=== PATIENT | female | born 1940 | race Caucasian/White ===

== ENCOUNTER 2017-04-12 05:20 | Emergency (ER) | payer BC, MEDICARE ==
--- NOTE | 2017-04-12 05:31 | C.PDOC ---
History Of Present Illness Patient presents to the ER after waking up at 04:00 screaming and crying because of a headache. Denies fever, chills, nausea or vomiting. Time Seen by Provider: 04/12/17 05:29 Chief Complaint (Nursing): Headache History Per: Patient History/Exam Limitations: no limitations Onset/Duration Of Symptoms: Hrs (Since 04:00) Current Symptoms Are (Timing): Still Present Severity: Mild Pain Scale Rating Of: 4 Preceeding Symptoms: None Associated Symptoms: denies: Nausea, Vomiting, Other (Fever, chills) Recent travel outside of the [place]: No Past Medical History Reviewed: Historical Data, Nursing Documentation, Vital Signs Vital Signs: Last Vital Signs Temp 98.9 F 04/12/17 05:26 Pulse 98 H 04/12/17 05:26 Resp 20 04/12/17 05:26 BP 159/74 H 04/12/17 05:26 Pulse Ox 96 04/12/17 06:39 - Medical History PMH: Diverticulitis Surgical History: Cholecystectomy Family History: States: No Known Family Hx - Social History Hx Tobacco Use: No Hx Alcohol Use: No Hx Substance Use: No - Immunization History Hx Tetanus Toxoid Vaccination: No Hx Influenza Vaccination: No Hx Pneumococcal Vaccination: No Review Of Systems Constitutional: Negative for: Fever, Chills Gastrointestinal: Negative for: Nausea, Vomiting Neurological: Positive for: Headache Physical Exam - Physical Exam Appears: Non-toxic Skin: Warm, Dry Oral Mucosa: Moist Chest: Symmetrical, No Tenderness Cardiovascular: Rhythm Regular, No Murmur Respiratory: No Rales, No Rhonchi, No Wheezing Gastrointestinal/Abdominal: Soft, No Tenderness Neurological/Psych: Oriented x3, Other (No focal deficits) ED Course And Treatment - Laboratory Results Result Diagrams: 04/12/17 05:47 04/12/17 05:47 ECG: Interpreted By Me, Viewed By Me O2 Sat by Pulse Oximetry: 96 Pulse Ox Interpretation: Normal - Radiology CXR: Interpreted by Me, Viewed By Me CXR Interpretation: No: Infiltrates, Fracture, Pnemothorax Progress Note: Blood work, CXR, urinalysis, EKG and head CT w/o contrast ordered. Reevaluation Time: 06:41 Reassessment Condition: Improved NIHSS Stroke Scale - Date/Time Evaluation Performed Date Performed: 04/12/17 Time Performed: 05:23 When Was NIHSS Performed: Baseline - How Severe is the Stoke Level of Consciousness: 0=Alert LOC to Questions: 0=Both comments correct LOC to commands: 0=Obeys both correctly Best Gaze: 0=Normal Visual: 0=No visual loss Facial: 0=Normal Motor Arm - Left: 0=No drift Motor Arm - Right: 0=No drift Motor Leg - Left: 0=No drift Motor Leg - Right: 0=No drift Limb Ataxia: 0=Absent Sensory: 0=Normal Best Language: 0=No aphasia Dysarthia: 0=Normal articulation Extinction & Inattention (Neglect): 0=Normal, no object Score: 0 Severity Of Stroke: 0= No Stroke Disposition Counseled Patient/Family Regarding: Studies Performed, Diagnosis, Need For Followup, Rx Given - Disposition Referrals: Otoniel Boyd MD [Staff Provider] - Disposition: HOME/ ROUTINE Disposition Time: 05:30 Condition: FAIR Prescriptions: Ibuprofen [Motrin] 1 tab PO TID PRN #15 tab PRN Reason: Pain Instructions: Acute Headache (DC), Night Terrors (ED) Print Language: PORTUGUESE - Clinical Impression Clinical Impression: Headache, Night terror - Scribe Statement The provider has reviewed the documentation as recorded by the Scribe Xu Quiñones All medical record entries made by the Scribe were at my direction and personally dictated by me. I have reviewed the chart and agree that the record accurately reflects my personal performance of the history, physical exam, medical decision making, and the department course for this patient. I have also personally directed, reviewed, and agree with the discharge instructions and disposition.
[2017-04-12 05:50] LABS: BASO # 0.1 K/uL (0.0-0.2); BASO % 0.5 % (0.0-2.0); EOS # 1.1 K/uL (0.0-0.7); EOS % 9.1 % (0.0-4.0); HEMATOCRIT 40.1 % (34.0-47.0); LYMPH # 1.7 K/uL (1.0-4.3); MEAN CELL VOLUME 93.1 fL (81.0-99.0); MEAN CORPUSCULAR HEMOGLOBIN 30.9 pg (27.0-31.0); MEAN CORPUSCULAR HGB CONC 33.2 g/dL (33.0-37.0); MEAN PLATELET VOLUME 8.6 fL (7.2-11.7); MONO # 0.7 K/uL (0.0-0.8); MONO % 5.7 % (0.0-10.0); WHITE BLOOD COUNT 11.7 K/uL (4.8-10.8)
[2017-04-12 06:02] LABS: CHLORIDE 103 mmol/L (98-107); SODIUM 139 mmol/L (132-148)
[2017-04-12 06:04] LABS: ALB/GLOB RATIO 1.3 (1.0-2.1); ALKALINE PHOSPHATASE 98 U/L (38-126); ALT/SGPT 31 U/L (9-52); AST/SGOT 33 U/L (14-36); BLOOD UREA NITROGEN 20 mg/dL (7-17); CARBON DIOXIDE 25 mmol/L (22-30); GFR AFRICAN-AMERICAN > 60; GLUCOSE,RANDOM 103 mg/dL (65-105); TOTAL PROTEIN 7.7 g/dL (6.3-8.3)
[2017-04-12 06:05] LABS: CALCIUM 8.5 mg/dl (8.6-10.4); MAGNESIUM 2.2 mg/dL (1.6-2.3); PHOSPHOROUS 3.1 mg/dL (2.5-4.5)
[2017-04-12 06:56] VITALS: BP 154/70; PULSE 92; RESP 16; TEMP 98.2; O2SAT 100
[2017-04-12 07:02] LABS: VENOUS BLOOD GAS BASE EXCESS -10.6 mmol/L (0.0-2.0); VENOUS BLOOD GAS PCO2 57 mmHg (40-60); VENOUS BLOOD PH 7.13 (7.32-7.43)
--- NOTE | 2017-04-12 11:06 | CT ---
PROCEDURE: CT HEAD WITHOUT CONTRAST. HISTORY: R/O Bleed COMPARISON: Comparison CT scan brain 06/17/2016 TECHNIQUE: Axial computed tomography images were obtained through the head/brain without intravenous contrast. Radiation dose: Total exam DLP = 866.81 mGy-cm. This CT exam was performed using one or more of the following dose reduction techniques: Automated exposure control, adjustment of the mA and/or kV according to patient size, and/or use of iterative reconstruction technique. FINDINGS: HEMORRHAGE: No intracranial hemorrhage. BRAIN: Mild moderate chronic periventricular white matter ischemic changes seen extending peripherally into the subcortical white matter both cerebral hemispheres. . Moderate central volume loss VENTRICLES: Ventricles are [id number] enlarged due to central volume loss. Ventricles do not appear hydro cephalic. CALVARIUM: No acute calvarial fractures. Scattered lucencies throughout the the inner table of the calvarium probably represent some combination of vascular grooves and venous lakes and do appear stable since prior exam. No cortical destructive changes. PARANASAL SINUSES: Opacification right aspect of the frontal sinus mild mucosal thickening seen within the ethmoid air complex MASTOID AIR CELLS: Unremarkable as visualized. No inflammatory changes. OTHER FINDINGS: None. IMPRESSION: Mild moderate chronic white matter ischemic changes as above. Dated. Moderate central volume loss.
--- NOTE | 2017-04-12 19:39 | RAD ---
PROCEDURE: CHEST RADIOGRAPH, 1 VIEW HISTORY: SOB COMPARISON: Comparison chest 11/10/2012. Comparison also made with prior CT scan abdomen pelvis 07/07/2012 which imaged both lung bases. FINDINGS: LUNGS: Eventration and/or Morgagni hernia left hemidiaphragm on less well seen on this study compared the prior CT scan abdomen pelvis which image both lung bases PLEURA: No pneumothorax or pleural fluid seen. CARDIOVASCULAR: N heart size is upper limits of normal/ borderline enlarged. L. OSSEOUS STRUCTURES: No significant abnormalities. VISUALIZED UPPER ABDOMEN: Normal. OTHER FINDINGS: None. IMPRESSION: Suspect minor bibasilar atelectasis. Eventration and/or hernia left hemidiaphragm
== END 2017-04-12 07:02 | disposition home or self-care (01) ==
LOC: C.ER 05:20
DX: R51 Headache (principal); F51.4 Sleep terrors [night terrors]
CPT/HCPCS: 70450; 71010; 80053; 82803; 82948; 83735; 84100; 84484; 85025; 85610; 85730; 96374; 99284; J1885

== ENCOUNTER 2017-10-26 12:21 | Emergency (ER) | payer MEDICARE ==
[2017-10-26 12:35] VITALS: RESP 18
[2017-10-26 13:17] LABS: BASO # 0.1 K/uL (0.0-0.2); BASO % 0.9 % (0.0-2.0); EOS # 0.5 K/uL (0.0-0.7); EOS % 6.8 % (0.0-4.0); HEMATOCRIT 38.9 % (34.0-47.0); LYMPH # 1.9 K/uL (1.0-4.3); LYMPH % 28.7 % (20.0-40.0); MEAN CELL VOLUME 93.7 fL (81.0-99.0); MEAN CORPUSCULAR HEMOGLOBIN 31.5 pg (27.0-31.0); MEAN CORPUSCULAR HGB CONC 33.6 g/dL (33.0-37.0); MEAN PLATELET VOLUME 8.1 fL (7.2-11.7); MONO # 0.6 K/uL (0.0-0.8); MONO % 8.6 % (0.0-10.0); RED CELL DISTRIBUTION WIDTH 14.3 % (11.5-14.5); WHITE BLOOD COUNT 6.7 K/uL (4.8-10.8)
[2017-10-26 13:33] LABS: ALB/GLOB RATIO 1.4 (1.0-2.1); ALKALINE PHOSPHATASE 73 U/L (38-126); ALT/SGPT 42 U/L (9-52); AST/SGOT 34 U/L (14-36); BILIRUBIN,TOTAL 0.8 mg/dL (0.2-1.3); BLOOD UREA NITROGEN 16 mg/dL (7-17); CALCIUM 8.1 mg/dl (8.6-10.4); CARBON DIOXIDE 24 mmol/L (22-30); CHLORIDE 105 mmol/L (98-107); GFR AFRICAN-AMERICAN > 60; GLUCOSE,RANDOM 94 mg/dL (65-105); POTASSIUM 4.3 mmol/L (3.6-5.2); SODIUM 137 mmol/L (132-148)
[2017-10-26] MEDS ORDERED: Alum-Mag Hydrox-Simethicone Susp (30 mL) PO STA (13:51)
--- NOTE | 2017-10-26 13:58 | C.PDOC ---
History Of Present Illness 77 year old female presents to the ED complaining of epigastric, nonradiating abdominal pain associated with NBNB vomiting and NB diarrhea x 2 days. Also complains of diffuse headache. She is accompanied by two sons who admit that she has had similar symptoms for a long time and has been seen in the ED previously. Denies fever, chills, dyspnea, chest pain, dysuria, numbness, or weakness. PMD: Dr. Otoniel Boyd MD Time Seen by Provider: 10/26/17 13:10 Chief Complaint (Nursing): Dizziness/Lightheaded Past Medical History Vital Signs: Last Vital Signs Temp 98.6 F 10/26/17 12:42 Pulse 72 10/26/17 12:34 Resp 18 10/26/17 12:34 BP 109/67 10/26/17 12:34 Pulse Ox 96 10/26/17 16:44 - Medical History PMH: Diverticulitis Surgical History: Cholecystectomy Family History: States: No Known Family Hx - Social History Hx Tobacco Use: No Hx Alcohol Use: No Hx Substance Use: No - Immunization History Hx Tetanus Toxoid Vaccination: No Hx Influenza Vaccination: No Hx Pneumococcal Vaccination: No Review Of Systems Constitutional: Negative for: Fever, Chills Physical Exam - Physical Exam Additional Physical Exam Comments: Constitutional: No acute distress. Head: Normocephalic. Atraumatic. Eyes: PERRL. ENT: Moist mucous membranes. Neck: Supple. Cardiovascular: Regular rate. Radial pulse 2+ bilaterally. Chest: No tenderness. Respiratory: Clear to auscultation bilaterally. GI: Epigastric, LUQ, LLQ tenderness. No guarding. Back: Right CVA tenderness. No midline tenderness. Musculoskeletal: No tenderness or swelling. Skin: No rash. Neurologic: Alert, no focal deficit. CN II to XII intact. Motor 5/5 x 4. Sensation to light touch intact bilaterally. ED Course And Treatment - Laboratory Results Result Diagrams: 10/26/17 13:13 10/26/17 13:13 O2 Sat by Pulse Oximetry: 96 (RA) Pulse Ox Interpretation: Normal Medical Decision Making Medical Decision Making: Time: 15:[address] FINDINGS: HEMORRHAGE: No intracranial hemorrhage. BRAIN: No mass effect or edema. Scattered focal lucencies in the subcortical and periventricular white matter suggestive for chronic microvascular ischemic change. Moderate central volume loss. Bilateral basal ganglia calcifications. VENTRICLES: Ventricles are mild to moderately enlarged due to central volume loss. CALVARIUM: Scattered lucencies through that the inner table of the calvarium probably representing some combination of vascular grooves and venous lakes. PARANASAL SINUSES: Partial opacification of the ethmoid air cells and right frontal sinus. MASTOID AIR CELLS: Opacification with some relative sclerosis at the level of the right mastoid air cells. OTHER FINDINGS: None. IMPRESSION: Chronic microvascular ischemic changes. Moderate central volume loss. If symptoms persists, consider further evaluation with MRI. Time: 16:40 Abdomen/ Pelvis CT Findings: Atelectasis at the lung bases. No pleural or pericardial effusion. Mild fatty infiltration of the liver. Mild intrahepatic biliary ductal dilatation. Surgical clips at the level of the gallbladder fossa. Postsurgical prominence of the common bile duct with some relative increased attenuation at the level of the distal common bile duct, nonspecific. If there is concern for possible common bile duct stone, correlation with ERCP/ MRCP may be helpful if clinically indicated. Diminutive spleen. Nodular thickening of the adrenal glands. Pancreas grossly preserved. Upper abdominal bowel grossly preserved. Right kidney: No calculi or hydronephrosis. Left Kidney: Mid to lower pole 2.7 centimeter peripelvic cyst measuring 2.8 x 2.2 centimeters demonstrating a Hounsfield unit attenuation of 14 suggestive for a cyst. Urinary bladder is preserved. Heterogeneous uterus. Scattered areas of underdistention and or mild thickening seen within the transverse, distal descending, and sigmoid colons. This is nonspecific. Scattered colonic diverticuli. Appendix not well identified. Calcification and plaque within the aorta. Few shotty para-aortic and inguinal lymph nodes. Few shotty mesenteric lymph nodes. Degenerative changes in the spine and bilateral hips. Impression: 1. Scattered areas of underdistention and or mild thickening seen within the transverse, descending, and sigmoid colons. This is nonspecific. Clinical correlation. Scattered colonic diverticuli. Appendix not well identified. 2. Mild fatty infiltration of the liver. 3. Mild intrahepatic biliary ductal dilatation. Surgical clips at the level of the gallbladder fossa. Postsurgical prominence of the common bile duct with some relative increased attenuation at the level of the distal common bile duct , nonspecific. If there is concern for possible common bile duct stone, correlation with ERCP/ MRCP may be helpful if clinically indicated. 4. Mid to lower pole 2.7 centimeter left renal peripelvic cyst measuring 2.8 x 2.2 centimeters demonstrating a Hounsfield unit attenuation of 14 suggestive for a cyst. Scribe Attestation: Documented by Lissette Lantigua, acting as a scribe for Jonah Henson MD Provider Scribe Attestation: All medical record entries made by the Scribe were at my direction and personally dictated by me. I have reviewed the chart and agree that the record accurately reflects my personal performance of the history, physical exam, medical decision making, and the department course for this patient. I have also personally directed, reviewed, and agree with the discharge instructions and disposition. Patient feels better, continues to have tenderness along epigastric, LUQ, LLQ area without guarding, consistent with findings of thickening on CT. LFTs normal. No RUQ tenderness. Will prescribe antibiotics for colitis, advised on diet, and instructed to f/u with PMD for further care. Return to ED for worsening pain, fever, intractible vomiting, or any other problem. Disposition - Disposition Referrals: Otoniel Boyd MD [Staff Provider] - Disposition: HOME/ ROUTINE Disposition Time: 16:57 Condition: STABLE Prescriptions: levoFLOXacin [Levaquin] 1 tab PO DAILY #10 tab Metronidazole [Flagyl] 500 mg PO Q8 #30 tab Ondansetron ODT [Zofran ODT] 4 mg PO Q8 #12 odt Instructions: Colitis (ED) Forms: [employer] ([place]i) - Clinical Impression Clinical Impression: Colitis
[2017-10-26] MEDS ORDERED: Aluminum Hydroxide/Magnesium Hydroxide Susp (30 mL) ONE (14:10)
[2017-10-26] MEDS ORDERED: Iodixanol 320 MG/ML 100 ML BOTTLE IV ONE (15:34)
--- NOTE | 2017-10-26 16:23 | CT ---
PROCEDURE: CT HEAD WITHOUT CONTRAST. HISTORY: headache, vomiting COMPARISON: 04/12/2017. TECHNIQUE: Axial computed tomography images were obtained through the head/brain without intravenous contrast. Radiation dose: Total exam DLP = 780 mGy-cm. This CT exam was performed using one or more of the following dose reduction techniques: Automated exposure control, adjustment of the mA and/or kV according to patient size, and/or use of iterative reconstruction technique. FINDINGS: HEMORRHAGE: No intracranial hemorrhage. BRAIN: No mass effect or edema. Scattered focal lucencies in the subcortical and periventricular white matter suggestive for chronic microvascular ischemic change. Moderate central volume loss. Bilateral basal ganglia calcifications. VENTRICLES: Ventricles are mild to moderately enlarged due to central volume loss. CALVARIUM: Scattered lucencies through that the inner table of the calvarium probably representing some combination of vascular grooves and venous lakes. PARANASAL SINUSES: Partial opacification of the ethmoid air cells and right frontal sinus. MASTOID AIR CELLS: Opacification with some relative sclerosis at the level of the right mastoid air cells. OTHER FINDINGS: None. IMPRESSION: Chronic microvascular ischemic changes. Moderate central volume loss. If symptoms persists, consider further evaluation with MRI.
--- NOTE | 2017-10-26 16:41 | CT ---
CT abdomen and pelvis History: Abdominal pain. Vomiting. Comparison: 07/07/2012 Technique: Multiple contiguous axial images were performed through the abdomen and pelvis with the use intravenous contrast. Subsequently, sagittal and coronal reformatted images were obtained. This CT exam was performed using one or more of the following dose reduction techniques: Automated exposure control, adjustment of the mA and/or kV according to patient size, and/or use of iterative reconstruction technique. Findings: Atelectasis at the lung bases. No pleural or pericardial effusion. Mild fatty infiltration of the liver. Mild intrahepatic biliary ductal dilatation. Surgical clips at the level of the gallbladder fossa. Postsurgical prominence of the common bile duct with some relative increased attenuation at the level of the distal common bile duct, nonspecific. If there is concern for possible common bile duct stone, correlation with ERCP/ MRCP may be helpful if clinically indicated. Diminutive spleen. Nodular thickening of the adrenal glands. Pancreas grossly preserved. Upper abdominal bowel grossly preserved. Right kidney: No calculi or hydronephrosis. Left Kidney: Mid to lower pole 2.7 centimeter peripelvic cyst measuring 2.8 x 2.2 centimeters demonstrating a Hounsfield unit attenuation of 14 suggestive for a cyst. Urinary bladder is preserved. Heterogeneous uterus. Scattered areas of underdistention and or mild thickening seen within the transverse, distal descending, and sigmoid colons. This is nonspecific. Scattered colonic diverticuli. Appendix not well identified. Calcification and plaque within the aorta. Few shotty para-aortic and inguinal lymph nodes. Few shotty mesenteric lymph nodes. Degenerative changes in the spine and bilateral hips. Impression: 1. Scattered areas of underdistention and or mild thickening seen within the transverse, descending, and sigmoid colons. This is nonspecific. Clinical correlation. Scattered colonic diverticuli. Appendix not well identified. 2. Mild fatty infiltration of the liver. 3. Mild intrahepatic biliary ductal dilatation. Surgical clips at the level of the gallbladder fossa. Postsurgical prominence of the common bile duct with some relative increased attenuation at the level of the distal common bile duct, nonspecific. If there is concern for possible common bile duct stone, correlation with ERCP/ MRCP may be helpful if clinically indicated. 4. Mid to lower pole 2.7 centimeter left renal peripelvic cyst measuring 2.8 x 2.2 centimeters demonstrating a Hounsfield unit attenuation of 14 suggestive for a cyst.
[2017-10-26 17:11] VITALS: BP 105/63; PULSE 61; TEMP 98.5; O2SAT 94
== END 2017-10-26 17:14 | disposition home or self-care (01) ==
LOC: C.ER 12:21
DX: K52.9 Noninfective gastroenteritis and colitis, unspecified (principal)
CPT/HCPCS: 70450; 74177; 80053; 83690; 84484; 85025; 96374; 96375; 99285; J2405; Q9967

== ENCOUNTER 2018-02-04 07:42 | Day surgery (SDC) | payer MEDICARE, MEDICAID ==
[2018-02-04] MEDS ORDERED: Lactated Ringer's 500 ML IV ONE (09:58)
[2018-02-04] MEDS ORDERED: Propofol 10 mg/ml Inj (20 ML) ONE (10:00)
[2018-02-04] MEDS ORDERED: Lactated Ringer's 500 ML IV SCH (10:30)
[2018-02-04 10:59] VITALS: TEMP 99.6
[2018-02-04 11:00] VITALS: O2SAT 100
[2018-02-04 12:33] VITALS: BP 120/69; PULSE 61; RESP 13
== END 2018-02-04 11:35 | disposition home or self-care (01) ==
LOC: C.ENDO 07:42
PROVIDERS: ATTEND Internal Medicine Gastroenterology
DX: R10.13 Epigastric pain (principal); Z12.11 Encounter for screening for malignant neoplasm of colon; K29.70 Gastritis, unspecified, without bleeding; D12.3 Benign neoplasm of transverse colon; K64.8 Other hemorrhoids
CPT/HCPCS: 43239; 45380; 88305; 88342; J2704; J7120

== ENCOUNTER 2018-05-02 16:26 | Observation (INO) | payer MEDICARE, MEDICAID ==
[2018-05-02 16:32] VITALS: BMI 26.4
[2018-05-02] MEDS ORDERED: Sodium Chloride 0.9% 1,000 ML IV ONE (17:08)
--- NOTE | 2018-05-02 17:09 | C.PDOC ---
History Of Present Illness 77 year old female presents to the emergency department with complaints of body aches, joint pain, and back pain persisting for the last three days. Patient reports that her back pain is chronic but has been the worst in the last two days. She reports that she is not taking any medications for her pain and she denies any smoking or alcohol use. Patient is a [place]ym[place] speaker and she was translated by her grandson. She also reports one episode of vomiting and that she has been incontinent for the last three years. Time Seen by Provider: 05/02/18 16:50 Chief Complaint (Nursing): Flu-like Symptoms History Per: Patient, Family (grandson) History/Exam Limitations: no limitations Onset/Duration Of Symptoms: Days (3) Current Symptoms Are (Timing): Still Present Past Medical History Reviewed: Historical Data, Nursing Documentation, Vital Signs Vital Signs: Last Vital Signs Temp 98.1 F 05/03/18 16:00 Pulse 75 05/03/18 16:00 Resp 20 05/03/18 16:00 BP 116/70 05/03/18 16:00 Pulse Ox 96 05/03/18 16:00 - Medical History PMH: Diverticulitis, Gastritis, Gall Bladder Disease, Hypercholesterolemia Denies: Chronic Kidney Disease Surgical History: Cholecystectomy, Endoscopy Family History: States: No Known Family Hx - Social History Hx Tobacco Use: No Hx Alcohol Use: No Hx Substance Use: No - Immunization History Hx Tetanus Toxoid Vaccination: No Hx Influenza Vaccination: No Hx Pneumococcal Vaccination: No Review Of Systems Except As Marked, All Systems Reviewed And Found Negative. Constitutional: Positive for: Malaise Gastrointestinal: Positive for: Vomiting Genitourinary: Positive for: Incontinence Musculoskeletal: Positive for: Back Pain Physical Exam - Physical Exam Appears: Non-toxic, No Acute Distress Skin: Warm, Dry Head: Atraumatic, Normacephalic Eye(s): bilateral: Normal Inspection Nose: Normal Neck: Normal, Supple Chest: Symmetrical Cardiovascular: Rhythm Regular Respiratory: Normal Breath Sounds, No Rales, No Rhonchi, No Wheezing Gastrointestinal/Abdominal: Normal Exam, Soft, No Tenderness Extremity: No Swelling Neurological/Psych: Oriented x3, Normal Speech, Normal Cognition ED Course And Treatment - Laboratory Results Result Diagrams: 05/03/18 06:53 05/03/18 06:53 O2 Sat by Pulse Oximetry: 96 (RA) Pulse Ox Interpretation: Normal Medical Decision Making Medical Decision Making: Plan: EKG CMP Troponin CBC CXR One View NaCl IV Fluids Toradol 30mg IVP Tylenol 650mg PO Urine Culture Influenza A B Urinalysis Disposition - Disposition Disposition: HOSPITALIZED Disposition Time: 18:05 Condition: GOOD - Clinical Impression Clinical Impression: Pyelonephritis - Scribe Statement The provider has reviewed the documentation as recorded by the Scribe (Constnatine Lopez) Provider Attestation: All medical record entries made by the Scribe were at my direction and personally dictated by me. I have reviewed the chart and agree that the record accurately reflects my personal performance of the history, physical exam, medical decision making, and the department course for this patient. I have also personally directed, reviewed, and agree with the discharge instructions and disposition.
[2018-05-02] MEDS ORDERED: Sodium Chloride 0.9% 1,000 ML ONE (17:20)
[2018-05-02 17:27] LABS: BASO # 0.1 K/uL (0.0-0.2); BASO % 1.3 % (0.0-2.0); EOS # 0.7 K/uL (0.0-0.7); EOS % 7.2 % (0.0-4.0); HEMOGLOBIN 14.1 g/dL (11.0-16.0); LYMPH # 2.5 K/uL (1.0-4.3); LYMPH % 27.1 % (20.0-40.0); MEAN CELL VOLUME 93.2 fL (81.0-99.0); MEAN CORPUSCULAR HEMOGLOBIN 31.3 pg (27.0-31.0); MEAN CORPUSCULAR HGB CONC 33.6 g/dL (33.0-37.0); MEAN PLATELET VOLUME 8.5 fL (7.2-11.7); MONO # 0.7 K/uL (0.0-0.8); MONO % 7.7 % (0.0-10.0); NEUT # 5.3 K/uL (1.8-7.0); NEUT % 56.7 % (50.0-75.0); NRBC % 0.1 % (0.0-2.0); RBC 4.51 Mil/uL (3.80-5.20); RED CELL DISTRIBUTION WIDTH 13.7 % (11.5-14.5); WHITE BLOOD COUNT 9.3 K/uL (4.8-10.8)
[2018-05-02 17:32] LABS: SQUAMOUS EPITHIAL 2 /hpf (0-5); URINE BACTERIA FEW (<OCC); URINE BILIRUBIN NEGATIVE (NEGATIVE); URINE BLOOD NEGATIVE (NEGATIVE); URINE CLARITY Hazy (Clear); URINE COLOR Yellow (YELLOW); URINE GLUCOSE (UA) NORMAL (Normal); URINE LEUKOCYTE ESTERASE TRACE Leu/uL (Negative); URINE PROTEIN NEGATIVE (NEGATIVE); URINE UROBILINOGEN NORMAL mg/dL (0.2-1.0)
[2018-05-02 17:46] LABS: ALB/GLOB RATIO 1.3 (1.0-2.1); ALBUMIN 4.4 g/dL (3.5-5.0); ALT/SGPT 19 U/L (9-52); AST/SGOT 27 U/L (14-36); BLOOD UREA NITROGEN 14 mg/dL (7-17); CALCIUM 9.1 mg/dl (8.6-10.4); GFR AFRICAN-AMERICAN > 60; GFR NON-AFRICAN AMERICAN > 60
--- NOTE | 2018-05-02 17:50 | RAD ---
PROCEDURE: CHEST RADIOGRAPH, 1 VIEW HISTORY: SOB COMPARISON: 04/12/2017. FINDINGS: LUNGS: The lungs are clear. PLEURA: No pneumothorax or pleural fluid seen. CARDIOVASCULAR: Normal. OSSEOUS STRUCTURES: No significant abnormalities. VISUALIZED UPPER ABDOMEN: Normal. OTHER FINDINGS: None. IMPRESSION: No active pulmonary disease.
[2018-05-02] MEDS ORDERED: cefTRIAXone IV 1 gm in Dextros 50 ML IVPB STA (18:01)
[2018-05-02] MEDS ORDERED: cefTRIAXone IV 1 gm in Dextros 50 ML IVPB ONE (18:09)
--- NOTE | 2018-05-02 18:56 | CP.PCM.HP ---
<RyleeShawn R - Last Filed: 05/02/18 19:05> History of Present Illness - History of Present Illness History of Present Illness: PGY-[address] Galeano. Mrs Chang is a 77 yo F with a PMHx of urinary incontinence, diverticulitis, gastritis, OA, and gall bladder disease, who presents to our ER with her grandson (who provided translation) for 3 days of body aches, back pain, subjective fevers, vaginal itchiness and increased urinary frequency. She denied burning on urination. She stated the symptoms did not go away thus she came to the ER. She describes the location of back pain as "middle-upper" back pain. 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 She's been treated for UTIs in the past and recently was given a topical cream for a vaginal fungal infection. PMHx: urinary incontinence, diverticulitis, gastritis, OA, and gall bladder disease PSHx: Cholecystitis, "bladder surgery" more than 20 years ago All: none Home Meds: Celebrex for OA Social Denies smoking, drinks socially, lives at home with family FamHx: Denies Present on Admission - Present on Admission Any Indicators Present on Admission: No Review of Systems - Constitutional Constitutional: Fatigue, Fever, Headache. absent: Chills - EENT Eyes: absent: Blurred Vision - Cardiovascular Cardiovascular: absent: Chest Pain - Respiratory Respiratory: absent: Dyspnea - Gastrointestinal Gastrointestinal: absent: Abdominal Pain, Bloating, Diarrhea - Genitourinary Genitourinary: Urinary Frequency. absent: Dysuria - Musculoskeletal Musculoskeletal: Arthralgias, Back Pain, Myalgias - Integumentary Integumentary: absent: Bleeding Lesions - Neurological Neurological: absent: Dizziness Past Patient History - Infectious Disease Hx of Infectious Diseases: None - Past Medical History & Family History Past Medical History?: Yes - Past Social History Smoking Status: Never Smoked - CARDIAC Hx Hypercholesterolemia: Yes - PULMONARY Hx Respiratory Disorders: No - NEUROLOGICAL Hx Neurological Disorder: No - HEENT Hx HEENT Problems: No - RENAL Hx Chronic Kidney Disease: No - ENDOCRINE/METABOLIC Hx Endocrine Disorders: No - HEMATOLOGICAL/ONCOLOGICAL Hx Blood Disorders: No - INTEGUMENTARY Hx Dermatological Problems: No - MUSCULOSKELETAL/RHEUMATOLOGICAL Hx Musculoskeletal Disorders: Yes (KNEE PAINS) - GASTROINTESTINAL Hx Diverticulitis: Yes Hx Gall Bladder Disease: Yes Hx Gastritis: Yes - GENITOURINARY/GYNECOLOGICAL Hx Genitourinary Disorders: Yes Hx Incontinence: Yes - PSYCHIATRIC Hx Substance Use: No - SURGICAL HISTORY Hx Cholecystectomy: Yes - ANESTHESIA Hx Anesthesia: Yes Hx Anesthesia Reactions: No Hx Malignant Hyperthermia: No Meds Allergies/Adverse Reactions: Allergies Allergy/AdvReac Type Severity Reaction Status Date / Time No Known Allergies Allergy Verified 05/02/18 16:31 Physical Exam - Constitutional Appears: Well, No Acute Distress - Head Exam Head Exam: ATRAUMATIC, NORMAL INSPECTION - Eye Exam Eye Exam: EOMI Pupil Exam: PERRL - ENT Exam ENT Exam: Mucous Membranes Dry - Neck Exam Neck exam: Positive for: Full Rom, Normal Inspection - Respiratory Exam Respiratory Exam: Clear to Auscultation Bilateral, NORMAL BREATHING PATTERN. absent: Rales, Rhonchi, Wheezes - Cardiovascular Exam Cardiovascular Exam: REGULAR RHYTHM, +S1, +S2. absent: Bradycardia, Tachycardia , JVD, Systolic Murmur - GI/Abdominal Exam GI & Abdominal Exam: Normal Bowel Sounds, Soft. absent: Distended, Firm, Guarding, Tenderness - Exam Additional comments: Vaginal exam performed by Dr Galeano. Some erythema noted sheri-vaginally. Suspicious for fungal rash. - Extremities Exam Extremities exam: Positive for: normal capillary refill, normal inspection - Back Exam Back exam: CVA tenderness (L), CVA tenderness (R) - Neurological Exam Neurological exam: Alert, Oriented x3 - Psychiatric Exam Psychiatric exam: Normal Affect, Normal Mood - Skin Skin Exam: Intact, Normal Color, Warm Results - Vital Signs Recent Vital Signs: Last Vital Signs Temp 98.3 F 05/02/18 18:25 Pulse 62 05/02/18 18:25 Resp 20 05/02/18 18:25 BP 102/60 05/02/18 18:25 Pulse Ox 95 05/02/18 18:25 - Labs Result Diagrams: 05/02/18 17:15 05/02/18 17:15 Labs: Laboratory Results - last 24 hr 05/02/18 05/02/18 05/02/18 17:15 17:15 17:15 WBC 9.3 RBC 4.51 Hgb 14.1 Hct 42.0 MCV 93.2 MCH 31.3 H MCHC 33.6 RDW 13.7 Plt Count 274 MPV 8.5 Neut % (Auto) 56.7 Lymph % (Auto) 27.1 [place] % (Auto) 7.7 Eos % (Auto) 7.2 H Baso % (Auto) 1.3 Neut # (Auto) 5.3 Lymph # (Auto) 2.5 [place] # (Auto) 0.7 Eos # (Auto) 0.7 Baso # (Auto) 0.1 Sodium 139 Potassium 4.0 Chloride 105 Carbon Dioxide 22 Anion Gap 16 BUN 14 Creatinine 0.9 Est GFR ( Amer) > 60 Est GFR (Non-Af Amer) > 60 Random Glucose 103 Calcium 9.1 Total Bilirubin 0.7 AST 27 ALT 19 Alkaline Phosphatase 110 Troponin I < 0.0120 Total Protein 7.9 Albumin 4.4 Globulin 3.5 Albumin/Globulin Ratio 1.3 Urine Color Yellow Urine Clarity Hazy Urine pH 7.0 Ur Specific Beyer 1.013 Urine Protein Negative Urine Glucose (UA) Normal Urine Ketones Negative Urine Blood Negative Urine Nitrate Positive H Urine Bilirubin Negative Urine Urobilinogen Normal Ur Leukocyte Esterase Trace Urine WBC (Auto) 12 H Urine RBC (Auto) 3 Ur Squamous Epith Cells 2 Urine Bacteria Few H Influenza Typ A,B (EIA) 05/02/18 17:34 WBC RBC Hgb Hct MCV MCH MCHC RDW Plt Count MPV Neut % (Auto) Lymph % (Auto) [place] % (Auto) Eos % (Auto) Baso % (Auto) Neut # (Auto) Lymph # (Auto) [place] # (Auto) Eos # (Auto) Baso # (Auto) Sodium Potassium Chloride Carbon Dioxide Anion Gap BUN Creatinine Est GFR ( Amer) Est GFR (Non-Af Amer) Random Glucose Calcium Total Bilirubin AST ALT Alkaline Phosphatase Troponin I Total Protein Albumin Globulin Albumin/Globulin Ratio Urine Color Urine Clarity Urine pH Ur Specific Beyer Urine Protein Urine Glucose (UA) Urine Ketones Urine Blood Urine Nitrate Urine Bilirubin Urine Urobilinogen Ur Leukocyte Esterase Urine WBC (Auto) Urine RBC (Auto) Ur Squamous Epith Cells Urine Bacteria Influenza Typ A,B (EIA) Negative for flu a/b Assessment & Plan (1) UTI (urinary tract infection) Assessment and Plan: Increased frequency, CVA tenderness b/l UA positive for nitrates, wbc, per ED attending rectal temp elevated F/U lactate F/U urine culture F/U repeat UA - to be collected tmr afternoon after abx administration F/U CT abd/pelvis w/wo contrast to rule out stones and pyelo Rocephin 1g IVP Q12H Florastor 250mg PO QD Tylenol 650mg PO Q6H PRN NS 75ml/hr Status: Acute Priority: High (2) Vulvovaginitis Assessment and Plan: Lotrimin 1% topical BID applied in groin and sheri-vaginally Status: Acute Priority: Medium (3) Prophylactic measure Assessment and Plan: GI prophylaxis not indicated Heparin 5000u SC Q8H SCDs Heart Healthy Diet Status: Acute Priority: Low <Jillian Galeano V - Last Filed: 05/03/18 16:42> Results - Vital Signs Recent Vital Signs: Last Vital Signs Temp 98.2 F 05/03/18 08:00 Pulse 77 05/03/18 08:00 Resp 20 05/03/18 08:00 BP 121/65 05/03/18 08:00 Pulse Ox 94 L 05/03/18 08:00 - Labs Result Diagrams: 05/03/18 06:53 05/03/18 06:53 Labs: Laboratory Results - last 24 hr 05/02/18 05/02/18 05/02/18 17:15 17:15 17:15 WBC 9.3 RBC 4.51 Hgb 14.1 Hct 42.0 MCV 93.2 MCH 31.3 H MCHC 33.6 RDW 13.7 Plt Count 274 MPV 8.5 Neut % (Auto) 56.7 Lymph % (Auto) 27.1 [place] % (Auto) 7.7 Eos % (Auto) 7.2 H Baso % (Auto) 1.3 Neut # (Auto) 5.3 Lymph # (Auto) 2.5 [place] # (Auto) 0.7 Eos # (Auto) 0.7 Baso # (Auto) 0.1 ESR Sodium 139 Potassium 4.0 Chloride 105 Carbon Dioxide 22 Anion Gap 16 BUN 14 Creatinine 0.9 Est GFR ( Amer) > 60 Est GFR (Non-Af Amer) > 60 Random Glucose 103 Lactic Acid Calcium 9.1 Total Bilirubin 0.7 AST 27 ALT 19 Alkaline Phosphatase 110 Troponin I < 0.0120 C-Reactive Protein Total Protein 7.9 Albumin 4.4 Globulin 3.5 Albumin/Globulin Ratio 1.3 Urine Color Yellow Urine Clarity Hazy Urine pH 7.0 Ur Specific Beyer 1.013 Urine Protein Negative Urine Glucose (UA) Normal Urine Ketones Negative Urine Blood Negative Urine Nitrate Positive H Urine Bilirubin Negative Urine Urobilinogen Normal Ur Leukocyte Esterase Trace Urine WBC (Auto) 12 H Urine RBC (Auto) 3 Ur Squamous Epith Cells 2 Urine Bacteria Few H Influenza Typ A,B (EIA) 05/02/18 05/02/18 05/03/18 17:34 18:21 06:53 WBC 7.7 RBC 3.97 Hgb 12.6 Hct 37.2 MCV 93.6 MCH 31.7 H MCHC 33.9 RDW 13.5 Plt Count 245 MPV 7.8 Neut % (Auto) 60.1 Lymph % (Auto) 23.5 [place] % (Auto) 6.9 Eos % (Auto) 8.5 H Baso % (Auto) 1.0 Neut # (Auto) 4.6 Lymph # (Auto) 1.8 [place] # (Auto) 0.5 Eos # (Auto) 0.7 Baso # (Auto) 0.1 ESR 35 H Sodium Potassium Chloride Carbon Dioxide Anion Gap BUN Creatinine Est GFR ( Amer) Est GFR (Non-Af Amer) Random Glucose Lactic Acid 0.9 Calcium Total Bilirubin AST ALT Alkaline Phosphatase Troponin I C-Reactive Protein Total Protein Albumin Globulin Albumin/Globulin Ratio Urine Color Urine Clarity Urine pH Ur Specific Beyer Urine Protein Urine Glucose (UA) Urine Ketones Urine Blood Urine Nitrate Urine Bilirubin Urine Urobilinogen Ur Leukocyte Esterase Urine WBC (Auto) Urine RBC (Auto) Ur Squamous Epith Cells Urine Bacteria Influenza Typ A,B (EIA) Negative for flu a/b 05/03/18 06:53 WBC RBC Hgb Hct MCV MCH MCHC RDW Plt Count MPV Neut % (Auto) Lymph % (Auto) [place] % (Auto) Eos % (Auto) Baso % (Auto) Neut # (Auto) Lymph # (Auto) [place] # (Auto) Eos # (Auto) Baso # (Auto) ESR Sodium 138 Potassium 4.0 Chloride 109 H Carbon Dioxide 22 Anion Gap 11 BUN 13 Creatinine 0.7 Est GFR ( Amer) > 60 Est GFR (Non-Af Amer) > 60 Random Glucose 111 H Lactic Acid Calcium 8.2 L Total Bilirubin 0.5 AST 25 ALT 26 Alkaline Phosphatase 89 Troponin I C-Reactive Protein < 5.00 Total Protein 6.8 Albumin 3.7 Globulin 3.1 Albumin/Globulin Ratio 1.2 Urine Color Urine Clarity Urine pH Ur Specific Beyer Urine Protein Urine Glucose (UA) Urine Ketones Urine Blood Urine Nitrate Urine Bilirubin Urine Urobilinogen Ur Leukocyte Esterase Urine WBC (Auto) Urine RBC (Auto) Ur Squamous Epith Cells Urine Bacteria Influenza Typ A,B (EIA) Attending/Attestation - Attestation I have personally seen and examined this patient.: Yes I have fully participated in the care of the patient.: Yes I have reviewed all pertinent clinical information: Yes Notes (Text): This is late computer entry for 05/02/18. Patient seen, examined and case discussed with medical insurance collector. Patient seen in the emergency room [facility] [address] with her grandson who has accompanied her. Patient has reported body aches and pains, lack of appetite, and muscle cramping. Patient has history of bladder prolapse requiring surgery in the past , urinary incontinence, and vaginal pruritis. Patient does report she has had a cream given to her by the it business analyst for vaginal pruritus. Patient was noted to have 101 F rectal per my discussion with the ED doctor though not noted in the EMR. Patient has a history of arthritis affecting both knees and ankles and seen the orthopedic in the past and received injection in the knee. Per my exam: Addendum: Left ear: TMI intact and right ear: narrow no observed ear drum (patient has prior hx of ent surgery for cholesteatoma) Nose: clear nares Throat: no enlarged adenoids Lungs: clear Abdomen: soft/nt/nd+BS X4 quad, no rebound, no guarding; intriegnous folds no rash noted Back: + cva tenderness b/l Genital exam: permitted by the patient, witness by the resident, grandson has chosen to step out: has erythema over the outside introitus no discharge apart Assessment/Plan (1) UTI (urinary tract infection) Fever Assessment and Plan: * Increased frequency, CVA tenderness b/l * UA positive for nitrates, wbc, per ED attending rectal temp elevated * F/U lactate * F/U urine culture * F/U repeat UA - to be collected tmr afternoon after abx administration * F/U CT abd/pelvis w/wo contrast to rule out stones and rule in pyelo * Rocephin 1g IVP Q12H * Florastor 250mg PO QBID * Tylenol 650mg PO Q6H PRN fever * NS 75ml/hr * ESR, CRP Status: Acute Priority: High (2) Vulvovaginitis Assessment and Plan: * Lotrimin 1% topical BID applied in groin and sheri-vaginally Status: Acute Priority: Medium (3) Prophylactic measure Assessment and Plan: * GI prophylaxis not indicated * Heparin 5000u SC Q8H * SCDs * Heart Healthy Diet Status: Acute Priority: Low Plan for possible discharge tomorrow pending CT scan and Urine culture.
[2018-05-02] MEDS: Sodium Chloride 0.9% 1,000 ML IV SCH ×2 (19:24→22:52)
[2018-05-02] MEDS: Clotrimazole 1% Cream(30 gm) TOP SCH (19:58)
[2018-05-02 20:35] VITALS: RESP 20
[2018-05-03] MEDS: cefTRIAXone IV 1 gm in Dextros 50 ML IVPB SCH ×2 (06:06→17:40)
[2018-05-03 07:03] LABS: BASO # 0.1 K/uL (0.0-0.2); EOS # 0.7 K/uL (0.0-0.7); EOS % 8.5 % (0.0-4.0); HEMOGLOBIN 12.6 g/dL (11.0-16.0); LYMPH # 1.8 K/uL (1.0-4.3); LYMPH % 23.5 % (20.0-40.0); MEAN CELL VOLUME 93.6 fL (81.0-99.0); MEAN CORPUSCULAR HEMOGLOBIN 31.7 pg (27.0-31.0); MEAN CORPUSCULAR HGB CONC 33.9 g/dL (33.0-37.0); MEAN PLATELET VOLUME 7.8 fL (7.2-11.7); MONO # 0.5 K/uL (0.0-0.8); MONO % 6.9 % (0.0-10.0); NEUT # 4.6 K/uL (1.8-7.0); NEUT % 60.1 % (50.0-75.0); RBC 3.97 Mil/uL (3.80-5.20); RED CELL DISTRIBUTION WIDTH 13.5 % (11.5-14.5); WHITE BLOOD COUNT 7.7 K/uL (4.8-10.8)
[2018-05-03 07:24] LABS: ALB/GLOB RATIO 1.2 (1.0-2.1); ALBUMIN 3.7 g/dL (3.5-5.0); ALT/SGPT 26 U/L (9-52); AST/SGOT 25 U/L (14-36); BLOOD UREA NITROGEN 13 mg/dL (7-17); CALCIUM 8.2 mg/dl (8.6-10.4); GFR AFRICAN-AMERICAN > 60; GFR NON-AFRICAN AMERICAN > 60
[2018-05-03] MEDS: Sodium Chloride 0.9% 1,000 ML IV SCH (08:06)
[2018-05-03] MEDS ORDERED: Enoxaparin 40 mg Syringe SC SCH (10:00)
[2018-05-03] MEDS ORDERED: Saccharomyces Boulardi 250 mg Cap PO SCH (10:00)
[2018-05-03] MEDS: Clotrimazole 1% Cream(30 gm) TOP SCH ×2 (11:17→17:21)
--- NOTE | 2018-05-03 15:10 | CP.PCM.PN ---
<Shawn Mckee - Last Filed: 05/03/18 15:05> Subjective - Date & Time of Evaluation Date of Evaluation: 05/03/18 Time of Evaluation: 15:05 - Subjective Subjective: PGY-[address] Galeano. No acute events noted overnight. Patient stated her main complaint was her back pain that's been ongoing for the past 2 months. She stated she was incontinent of urine this morning and that the vaginal itchiness has improved somewhat after the application of the cream. To Dr Galeano, she also stated she felt bloated. Denied fevers, chills, nausea, vomiting, chest pain. Objective - Vital Signs/Intake and Output Vital Signs (last 24 hours): Temp Pulse Resp BP Pulse Ox 98.2 F 77 20 121/65 94 L 05/03/18 08:00 05/03/18 08:00 05/03/18 08:00 05/03/18 08:00 05/03/18 08:00 Intake and Output: 05/03/18 05/03/18 06:59 18:59 Intake Total 300 Balance 300 - Medications Medications: Current Medications Acetaminophen (Tylenol 325mg Tab) 650 mg PO Q6 PRN PRN Reason: Fever >100.4 F Last Admin: 05/03/18 04:16 Dose: 650 mg Clotrimazole (Lotrimin 1%) 1 gm TOP BID [facility] Last Admin: 05/03/18 11:17 Dose: 1 applic Enoxaparin Sodium (Lovenox) 40 mg SC DAILY [facility] Last Admin: 05/03/18 11:14 Dose: 40 mg Sodium Chloride (Sodium Chloride 0.9%) 1,000 mls @ 75 mls/hr IV .[id number] [facility] Last Admin: 05/03/18 08:06 Dose: Not Given Ceftriaxone Sodium (Rocephin Iv 1 Gm Duplex) 50 mls @ 100 mls/hr IVPB Q12H [place] PRN Reason: Protocol Last Admin: 05/03/18 06:06 Dose: 100 mls/hr Saccharomyces Boulardii (Florastor) 250 mg PO DAILY [facility] Last Admin: 05/03/18 11:14 Dose: 250 mg - Labs Labs: 05/03/18 06:53 05/03/18 06:53 - Additional Findings Additional findings: - Constitutional Appears: Well, No Acute Distress - Head Exam Head Exam: ATRAUMATIC, NORMAL INSPECTION - Eye Exam Eye Exam: EOMI Pupil Exam: PERRL - ENT Exam ENT Exam: Mucous Membranes Moist - Neck Exam Neck exam: Positive for: Full Rom, Normal Inspection - Respiratory Exam Respiratory Exam: Clear to Auscultation Bilateral, NORMAL BREATHING PATTERN. absent: Rales, Rhonchi, Wheezes - Cardiovascular Exam Cardiovascular Exam: REGULAR RHYTHM, +S1, +S2. absent: Bradycardia, Tachycardia , JVD, Systolic Murmur - GI/Abdominal Exam GI & Abdominal Exam: Normal Bowel Sounds, Soft. absent: Distended, Firm, Guarding, Tenderness - Exam Additional comments: Vaginal exam performed by Dr Galeano on admission - Some erythema noted sheri- vaginally. Suspicious for fungal rash. - Extremities Exam Extremities exam: Positive for: normal capillary refill, normal inspection - Back Exam Back exam: CVA tenderness (R) - Neurological Exam Neurological exam: Alert, Oriented x3 - Psychiatric Exam Psychiatric exam: Normal Affect, Normal Mood - Skin Skin Exam: Intact, Normal Color, Warm Assessment and Plan (1) UTI (urinary tract infection) Status: Acute (2) Vulvovaginitis Status: Acute (3) Prophylactic measure Status: Acute - Assessment and Plan (Free Text) Assessment: (1) UTI (urinary tract infection) Assessment and Plan: Increased frequency, CVA tenderness b/l UA positive for nitrates, wbc, per ED attending rectal temp elevated Lactate NORMAL Urine culture 05/02/18 + for gram negative rods ESR elevated, CRP NORMAL, F/U repeat ESR F/U repeat UA F/U CT abd/pelvis w/wo contrast to rule out stones and pyelo Rocephin 1g IVP Q12H Florastor 250mg PO QD Tylenol 650mg PO Q6H PRN NS 75ml/hr Status: Acute Priority: High (2) Vulvovaginitis Assessment and Plan: Lotrimin 1% topical BID applied in groin and sheri-vaginally Status: Acute Priority: Medium (3) Prophylactic measure Assessment and Plan: Protonix 40mg PO QD Simethicone 40mg PO QID Heparin 5000u SC Q8H SCDs Heart Healthy Diet Status: Acute Priority: Low Disposition: If imaging looks benign we will discharge tmr 05/04 on oral abx - will keep her obs for now. <Jillian Galeano V - Last Filed: 05/03/18 16:52> Objective - Vital Signs/Intake and Output Vital Signs (last 24 hours): Temp Pulse Resp BP Pulse Ox 98.2 F 77 20 121/65 94 L 05/03/18 08:00 05/03/18 08:00 05/03/18 08:00 05/03/18 08:00 05/03/18 08:00 Intake and Output: 05/03/18 05/03/18 06:59 18:59 Intake Total 300 Balance 300 - Medications Medications: Current Medications Acetaminophen (Tylenol 325mg Tab) 650 mg PO Q6 PRN PRN Reason: Fever >100.4 F Last Admin: 05/03/18 04:16 Dose: 650 mg Clotrimazole (Lotrimin 1%) 1 gm TOP BID [facility] Last Admin: 05/03/18 11:17 Dose: 1 applic Enoxaparin Sodium (Lovenox) 40 mg SC DAILY [facility] Last Admin: 05/03/18 11:14 Dose: 40 mg Sodium Chloride (Sodium Chloride 0.9%) 1,000 mls @ 75 mls/hr IV .[id number] [facility] Last Admin: 05/03/18 08:06 Dose: Not Given Ceftriaxone Sodium (Rocephin Iv 1 Gm Duplex) 50 mls @ 100 mls/hr IVPB Q12H [place] PRN Reason: Protocol Last Admin: 05/03/18 06:06 Dose: 100 mls/hr Pantoprazole Sodium (Protonix Ec Tab) 40 mg PO DAILY [facility] Last Admin: 05/03/18 15:28 Dose: 40 mg Saccharomyces Boulardii (Florastor) 250 mg PO DAILY [facility] Last Admin: 05/03/18 11:14 Dose: 250 mg Simethicone (Mylicon Liq) 40 mg PO QID [facility] - Labs Labs: 05/03/18 06:53 05/03/18 06:53 Attending/Attestation - Attestation I have personally seen and examined this patient.: Yes I have fully participated in the care of the patient.: Yes I have reviewed all pertinent clinical information, including history, physical exam and plan: Yes Notes (Text): Patient seen, examined and case discussed with associate medical director. Patient seen this morning. Patient denies fever, denies chills, reports headache this morning which calmed with tylenol, reports abdominal discomfort ( gaseous), reports vaginal itchiness is less, patient reports back pain but on my exam is more over the right T10-T11, denies constipation, denies diarrhea. Patient has not had CT Abdomen/Pelvis by the time I have rounded at 1PM. We have changed in the morning since she did not complete the CT scan overnight to be without po/iv contrast to rule out kidney stone. Patient's urine culture prelim noted for gram negative cocci. Assessment/Plan (1) UTI (urinary tract infection) Fever Assessment and Plan: * Increased frequency, CVA tenderness b/l * UA positive for nitrates, wbc, per ED attending rectal temp elevated * Lactate: 0.9 * Urine culture; gram negative danay * pending F/U CT abd/pelvis w/wo contrast to rule out stones and rule in pyelo * Rocephin 1g IVP Q12H * Florastor 250mg PO Q BID * Tylenol 650mg PO Q6H PRN fever * NS 75ml/hr * ESR: 35 * CRP: normal Status: Acute Priority: High (2) Vulvovaginitis Assessment and Plan: * Lotrimin 1% topical BID applied in groin and sheri-vaginally Status: Acute Priority: Medium (3) Prophylactic measure Assessment and Plan: * GI prophylaxis not indicated * Heparin 5000u SC Q8H * SCDs * Heart Healthy Diet Status: Acute Priority: Low Discharge pending CT scan.
[2018-05-03] MEDS ORDERED: Pantoprazole 40 mg EC Tab PO SCH (15:15)
--- NOTE | 2018-05-03 15:43 | CT ---
PROCEDURE: CT Abdomen and Pelvis without intravenous contrast HISTORY: dysuria, r/o stones COMPARISON: 10/26/2017. TECHNIQUE: CT scan of the abdomen and pelvis was performed without administration of intravenous contrast. Oral contrast was not administered. Coronal and sagittal reformatted images were obtained. Radiation dose: Total exam DLP = 419.14 mGy-cm. This CT exam was performed using one or more of the following dose reduction techniques: Automated exposure control, adjustment of the mA and/or kV according to patient size, and/or use of iterative reconstruction technique. FINDINGS: LOWER THORAX: There is subsegmental atelectasis in the lingula and right lung base. LIVER: Normal in size. No gross lesion or ductal dilatation. GALLBLADDER AND BILE DUCTS: Surgically absent. PANCREAS: Normal in size. No gross lesion or ductal dilatation. SPLEEN: Normal in size. ADRENALS: The right adrenal gland is normal in appearance. There is a stable 9 mm adenoma in the left adrenal gland KIDNEYS AND URETERS: Both kidneys are normal in size without nephrolithiasis or hydronephrosis. There is a stable 2.2 cm parapelvic cyst in the left lower pole. No evidence of perinephric fat stranding or fluid collection. VASCULATURE: No aortic aneurysm. BOWEL: The small bowel loops are normal in caliber. There is colonic diverticulosis without CT evidence for acute diverticulitis. APPENDIX: Unremarkable. Normal appendix. PERITONEUM: No free fluid. No free air. LYMPH NODES: No enlarged lymph nodes. BLADDER: Well distended and normal in appearance. REPRODUCTIVE: The uterus is normal in size. BONES: No acute fracture. Multilevel degenerative changes in the spine. OTHER FINDINGS: None. IMPRESSION: 1. No hydronephrosis, nephrolithiasis or perinephric fat stranding/fluid collection. 2. Stable 2.2 cm parapelvic cyst in the lower pole of the left kidney. 3. Colonic diverticulosis without CT evidence for acute diverticulitis.
--- NOTE | 2018-05-03 17:15 | CP.PCM.DIS ---
<Shawn Mckee - Last Filed: 05/03/18 17:17> Provider - Provider Date of Admission: 05/02/18 18:05 Attending physician: Jillian Galeano DO Primary care physician: PMD: Dr Boyd Time Spent in preparation of Discharge (in minutes): 46 Diagnosis - Discharge Diagnosis (1) UTI (urinary tract infection) Status: Suspected Priority: High (2) Vulvovaginitis Status: Suspected Priority: Medium (3) Prophylactic measure Status: Resolved Priority: Low Hospital Course - Lab Results Lab Results: Micro Results 05/02/18 17:15 Urine Urine Culture - Preliminary Gram Negative Glenn Most Recent Lab Values WBC 7.7 K/uL (4.8-10.8) 05/03/18 06:53 RBC 3.97 Mil/uL (3.80-5.20) 05/03/18 06:53 Hgb 12.6 g/dL (11.0-16.0) 05/03/18 06:53 Hct 37.2 % (34.0-47.0) 05/03/18 06:53 MCV 93.6 fL (81.0-99.0) 05/03/18 06:53 MCH 31.7 pg (27.0-31.0) H 05/03/18 06:53 MCHC 33.9 g/dL (33.0-37.0) 05/03/18 06:53 RDW 13.5 % (11.5-14.5) 05/03/18 06:53 Plt Count 245 K/uL (130-400) 05/03/18 06:53 MPV 7.8 fL (7.2-11.7) 05/03/18 06:53 Neut % (Auto) 60.1 % (50.0-75.0) 05/03/18 06:53 Lymph % (Auto) 23.5 % (20.0-40.0) 05/03/18 06:53 [place] % (Auto) 6.9 % (0.0-10.0) 05/03/18 06:53 Eos % (Auto) 8.5 % (0.0-4.0) H 05/03/18 06:53 Baso % (Auto) 1.0 % (0.0-2.0) 05/03/18 06:53 Neut # (Auto) 4.6 K/uL (1.8-7.0) 05/03/18 06:53 Lymph # (Auto) 1.8 K/uL (1.0-4.3) 05/03/18 06:53 [place] # (Auto) 0.5 K/uL (0.0-0.8) 05/03/18 06:53 Eos # (Auto) 0.7 K/uL (0.0-0.7) 05/03/18 06:53 Baso # (Auto) 0.1 K/uL (0.0-0.2) 05/03/18 06:53 ESR 35 mm/hr (0-20) H 05/03/18 06:53 Sodium 138 mmol/L (132-148) 05/03/18 06:53 Potassium 4.0 mmol/L (3.6-5.2) 05/03/18 06:53 Chloride 109 mmol/L (98-107) H 05/03/18 06:53 Carbon Dioxide 22 mmol/L (22-30) 05/03/18 06:53 Anion Gap 11 (10-20) 05/03/18 06:53 BUN 13 mg/dL (7-17) 05/03/18 06:53 Creatinine 0.7 mg/dL (0.7-1.2) 05/03/18 06:53 Est GFR ( Amer) > 60 05/03/18 06:53 Est GFR (Non-Af Amer) > 60 05/03/18 06:53 Random Glucose 111 mg/dL (65-105) H 05/03/18 06:53 Lactic Acid 0.9 mmol/L (0.7-2.1) 05/02/18 18:21 Calcium 8.2 mg/dl (8.6-10.4) L 05/03/18 06:53 Total Bilirubin 0.5 mg/dL (0.2-1.3) 05/03/18 06:53 AST 25 U/L (14-36) 05/03/18 06:53 ALT 26 U/L (9-52) 05/03/18 06:53 Alkaline Phosphatase 89 U/L (38-126) 05/03/18 06:53 Troponin I < 0.0120 ng/mL (0.00-0.120) 05/02/18 17:15 C-Reactive Protein < 5.00 mg/L (0.0-9.9) 05/03/18 06:53 Total Protein 6.8 g/dL (6.3-8.3) 05/03/18 06:53 Albumin 3.7 g/dL (3.5-5.0) 05/03/18 06:53 Globulin 3.1 gm/dL (2.2-3.9) 05/03/18 06:53 Albumin/Globulin Ratio 1.2 (1.0-2.1) 05/03/18 06:53 Urine Color Yellow (YELLOW) 05/02/18 17:15 Urine Clarity Hazy (Clear) 05/02/18 17:15 Urine pH 7.0 (5.0-8.0) 05/02/18 17:15 Ur Specific [place] 1.013 (1.003-1.030) 05/02/18 17:15 Urine Protein Negative mg/dL (NEGATIVE) 05/02/18 17:15 Urine Glucose (UA) Normal mg/dL (Normal) 05/02/18 17:15 Urine Ketones Negative mg/dL (NEGATIVE) 05/02/18 17:15 Urine Blood Negative (NEGATIVE) 05/02/18 17:15 Urine Nitrate Positive (NEGATIVE) H 05/02/18 17:15 Urine Bilirubin Negative (NEGATIVE) 05/02/18 17:15 Urine Urobilinogen Normal mg/dL (0.2-1.0) 05/02/18 17:15 Ur Leukocyte Esterase Trace Moni/uL (Negative) 05/02/18 17:15 Urine WBC (Auto) 12 /hpf (0-5) H 05/02/18 17:15 Urine RBC (Auto) 3 /hpf (0-3) 05/02/18 17:15 Ur Squamous Epith Cells 2 /hpf (0-5) 05/02/18 17:15 Urine Bacteria Few (<OCC) H 05/02/18 17:15 Influenza Typ A,B (EIA) Negative for flu a/b (NEGATIVE) 05/02/18 17:34 - Hospital Course Hospital Course: History of Present Illness: PGY-[address] Galeano. Mrs Chang is a 77 yo F with a PMHx of urinary incontinence, diverticulitis, gastritis, OA, and gall bladder disease, who presents to our ER with her grandson (who provided translation) for 3 days of body aches, back pain, subjective fevers, vaginal itchiness and increased urinary frequency. She denied burning on urination. She stated the symptoms did not go away thus she came to the ER. She describes the location of back pain as "middle-upper" back pain. 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 She's been treated for UTIs in the past and recently was given a topical cream for a vaginal fungal infection. PMHx: urinary incontinence, diverticulitis, gastritis, OA, and gall bladder disease PSHx: Cholecystitis, "bladder surgery" more than 20 years ago All: none Home Meds: Celebrex for OA Social Denies smoking, drinks socially, lives at home with family FamHx: Denies HOSPITAL COURSE: Mrs Chang was admitted as observation for UTI. A rectal temperature was 100.3 and patient was tachy on admission - it was decided to admit the patient. UA showed nitrates and few bacteria. Urine culture showed gram negative rods. This patient has a history of urinary incontinence 2/2 to a bladder procedure many years ago - thus she is prone to UTIs and fungal infections. She was started on rocephin 1g BID. A CT abd/pelvis was ordered to rule out stones and pyelonephritis - which were both ruled out. She also had vulvovaginitis - she was treated with lotrimin cream. She was discharged with 5 days of PO bactrim and instructed to follow-up with her PMD in 1 week. I've included the latest A/ P below for more specifics on management course: (1) UTI (urinary tract infection) Assessment and Plan: Increased frequency, CVA tenderness b/l UA positive for nitrates, wbc, per ED attending rectal temp elevated Lactate NORMAL Urine culture 05/02/18 + for gram negative rods ESR elevated, CRP NORMAL, F/U repeat ESR F/U repeat UA CT abd/pelvis w/wo contrast to rule out stones and pyelo * 1. No hydronephrosis, nephrolithiasis or perinephric fat stranding/fluid collection. 2. Stable 2.2 cm parapelvic cyst in the lower pole of the left kidney. 3. Colonic diverticulosis without CT evidence for acute diverticulitis. Rocephin 1g IVP Q12H Florastor 250mg PO QD Tylenol 650mg PO Q6H PRN NS 75ml/hr Status: Acute Priority: High (2) Vulvovaginitis Assessment and Plan: Lotrimin 1% topical BID applied in groin and sheri-vaginally Status: Acute Priority: Medium (3) Prophylactic measure Assessment and Plan: Protonix 40mg PO QD Simethicone 40mg PO QID Heparin 5000u SC Q8H SCDs Heart Healthy Diet Status: Acute Priority: Low Discharge Exam - Head Exam Head Exam: ATRAUMATIC, NORMAL INSPECTION - Additional Findings Additional findings: - Constitutional Appears: Well, No Acute Distress - Head Exam Head Exam: ATRAUMATIC, NORMAL INSPECTION - Eye Exam Eye Exam: EOMI Pupil Exam: PERRL - ENT Exam ENT Exam: Mucous Membranes Moist - Neck Exam Neck exam: Positive for: Full Rom, Normal Inspection - Respiratory Exam Respiratory Exam: Clear to Auscultation Bilateral, NORMAL BREATHING PATTERN. absent: Rales, Rhonchi, Wheezes - Cardiovascular Exam Cardiovascular Exam: REGULAR RHYTHM, +S1, +S2. absent: Bradycardia, Tachycardia , JVD, Systolic Murmur - GI/Abdominal Exam GI & Abdominal Exam: Normal Bowel Sounds, Soft. absent: Distended, Firm, Guarding, Tenderness - Exam Additional comments: Vaginal exam performed by Dr Galeano on admission - Some erythema noted sheri- vaginally. Suspicious for fungal rash. - Extremities Exam Extremities exam: Positive for: normal capillary refill, normal inspection - Back Exam Back exam: CVA tenderness (R) - Neurological Exam Neurological exam: Alert, Oriented x3 - Psychiatric Exam Psychiatric exam: Normal Affect, Normal Mood - Skin Skin Exam: Intact, Normal Color, Warm Discharge Plan - Discharge Medications Prescriptions: Clotrimazole 1% Cream [Lotrimin 1%] 1 gm TOP BID #1 tube Lactobacillus Acidophilus [Bacid Acidophilus] 1 cap PO DAILY 14 Days #14 cap Simethicone [Gas-X Extra Strength] 125 mg PO BID PRN #20 ctb PRN Reason: Flatulence Sulfamethoxazole/Trimethoprim [Bactrim 400-80 mg Tablet] 1 each PO BID 5 Days # 10 tablet - Follow Up Plan Condition: GOOD Disposition: HOME/ ROUTINE Instructions: Constipation (DC), Constipation (GEN) Additional Instructions: You are medically stable for discharge. You will be given scripts, please take these scripts to a pharmacy and take the medications as instructed: 1. Clotrimazole 1% cream [Lotrimin 1%] apply to vaginal area/groin once in the morning and once before bedtime 2. Sulfamethoxazole/Trimethoprim [Bactrim 400-80mg] take 1 tablet with breakfast and 1 tablet with dinner 3. Lactobacillus Acidophilus take 1 capsule with lunch 4. Simethicone [Gas-X] take 1 tablet when you feel overly bloated or have gas pains If you feel as if you have a fever, you may take a over the counter Tylenol. Please follow-up with you primary doctor, Dr Boyd, in 1 week so he may be aware of this hospital stay and can monitor your course. Please attain a referral to see a urologist from Dr Boyd so the urologist can evaluate you for your urinary incontinence. It's possible the urologist might have a solution for your urinary incontinence through a surgery. If the urinary incontinence can be fixed you will have less UTIs and irritation in the groin area. If symptoms return, please go to your nearest emergency department. Referrals: Otoniel Boyd MD [Staff Provider] - <Jillian Galeano V - Last Filed: 05/04/18 00:25> Provider - Provider Date of Admission: 05/02/18 18:05 Attending physician: Jillian Galeano, DO Hospital Course - Lab Results Lab Results: Micro Results 05/02/18 17:15 Urine Urine Culture - Preliminary Gram Negative Glenn Most Recent Lab Values WBC 7.7 K/uL (4.8-10.8) 05/03/18 06:53 RBC 3.97 Mil/uL (3.80-5.20) 05/03/18 06:53 Hgb 12.6 g/dL (11.0-16.0) 05/03/18 06:53 Hct 37.2 % (34.0-47.0) 05/03/18 06:53 MCV 93.6 fL (81.0-99.0) 05/03/18 06:53 MCH 31.7 pg (27.0-31.0) H 05/03/18 06:53 MCHC 33.9 g/dL (33.0-37.0) 05/03/18 06:53 RDW 13.5 % (11.5-14.5) 05/03/18 06:53 Plt Count 245 K/uL (130-400) 05/03/18 06:53 MPV 7.8 fL (7.2-11.7) 05/03/18 06:53 Neut % (Auto) 60.1 % (50.0-75.0) 05/03/18 06:53 Lymph % (Auto) 23.5 % (20.0-40.0) 05/03/18 06:53 [place] % (Auto) 6.9 % (0.0-10.0) 05/03/18 06:53 Eos % (Auto) 8.5 % (0.0-4.0) H 05/03/18 06:53 Baso % (Auto) 1.0 % (0.0-2.0) 05/03/18 06:53 Neut # (Auto) 4.6 K/uL (1.8-7.0) 05/03/18 06:53 Lymph # (Auto) 1.8 K/uL (1.0-4.3) 05/03/18 06:53 [place] # (Auto) 0.5 K/uL (0.0-0.8) 05/03/18 06:53 Eos # (Auto) 0.7 K/uL (0.0-0.7) 05/03/18 06:53 Baso # (Auto) 0.1 K/uL (0.0-0.2) 05/03/18 06:53 ESR 35 mm/hr (0-20) H 05/03/18 06:53 Sodium 138 mmol/L (132-148) 05/03/18 06:53 Potassium 4.0 mmol/L (3.6-5.2) 05/03/18 06:53 Chloride 109 mmol/L (98-107) H 05/03/18 06:53 Carbon Dioxide 22 mmol/L (22-30) 05/03/18 06:53 Anion Gap 11 (10-20) 05/03/18 06:53 BUN 13 mg/dL (7-17) 05/03/18 06:53 Creatinine 0.7 mg/dL (0.7-1.2) 05/03/18 06:53 Est GFR ( Amer) > 60 05/03/18 06:53 Est GFR (Non-Af Amer) > 60 05/03/18 06:53 Random Glucose 111 mg/dL (65-105) H 05/03/18 06:53 Lactic Acid 0.9 mmol/L (0.7-2.1) 05/02/18 18:21 Calcium 8.2 mg/dl (8.6-10.4) L 05/03/18 06:53 Total Bilirubin 0.5 mg/dL (0.2-1.3) 05/03/18 06:53 AST 25 U/L (14-36) 05/03/18 06:53 ALT 26 U/L (9-52) 05/03/18 06:53 Alkaline Phosphatase 89 U/L (38-126) 05/03/18 06:53 Troponin I < 0.0120 ng/mL (0.00-0.120) 05/02/18 17:15 C-Reactive Protein < 5.00 mg/L (0.0-9.9) 05/03/18 06:53 Total Protein 6.8 g/dL (6.3-8.3) 05/03/18 06:53 Albumin 3.7 g/dL (3.5-5.0) 05/03/18 06:53 Globulin 3.1 gm/dL (2.2-3.9) 05/03/18 06:53 Albumin/Globulin Ratio 1.2 (1.0-2.1) 05/03/18 06:53 Urine Color Yellow (YELLOW) 05/02/18 17:15 Urine Clarity Hazy (Clear) 05/02/18 17:15 Urine pH 7.0 (5.0-8.0) 05/02/18 17:15 Ur Specific [place] 1.013 (1.003-1.030) 05/02/18 17:15 Urine Protein Negative mg/dL (NEGATIVE) 05/02/18 17:15 Urine Glucose (UA) Normal mg/dL (Normal) 05/02/18 17:15 Urine Ketones Negative mg/dL (NEGATIVE) 05/02/18 17:15 Urine Blood Negative (NEGATIVE) 06/23/18 17:15 Urine Nitrate Positive (NEGATIVE) H 05/02/18 17:15 Urine Bilirubin Negative (NEGATIVE) 05/02/18 17:15 Urine Urobilinogen Normal mg/dL (0.2-1.0) 05/02/18 17:15 Ur Leukocyte Esterase Trace Moni/uL (Negative) 05/02/18 17:15 Urine WBC (Auto) 12 /hpf (0-5) H 05/02/18 17:15 Urine RBC (Auto) 3 /hpf (0-3) 05/02/18 17:15 Ur Squamous Epith Cells 2 /hpf (0-5) 05/02/18 17:15 Urine Bacteria Few (<OCC) H 05/02/18 17:15 Influenza Typ A,B (EIA) Negative for flu a/b (NEGATIVE) 05/02/18 17:34 Attending/Attestation - Attestation I have personally seen and examined this patient.: Yes I have fully participated in the care of the patient.: Yes I have reviewed all pertinent clinical information, including history, physical exam and plan: Yes Notes (Text): Please refer to progress note. Patient's CT scan abdomen/pelvis without contrast available. patient is medically stable for discharge. Discharge order and discharge instructions discussed with day-time resident. New medications: 1. Clotrimazole 1% cream [Lotrimin 1%] apply to vaginal area/groin once in the morning and once before bedtime 2. Sulfamethoxazole/Trimethoprim [Bactrim 400-80mg] take 1 tablet with breakfast and 1 tablet with dinner 3. Lactobacillus Acidophilus take 1 capsule with lunch 4. Simethicone [Gas-X] take 1 tablet when you feel overly bloated or have gas pains If you feel as if you have a fever, you may take a over the counter Tylenol. Please follow-up with you primary doctor, Dr Boyd, in 1 week so he may be aware of this hospital stay and can monitor your course. Please attain a referral to see a urologist from Dr Boyd so the urologist can evaluate you for your urinary incontinence. It's possible the urologist might have a solution for your urinary incontinence through a surgery. If the urinary incontinence can be fixed you will have less UTIs and irritation in the groin area. If symptoms return, please go to your nearest emergency department. This is a summary of patient's hospitalization. Please refer to EMR for full details of record. Discharge Diagnoses: (1) Pyleonephritis-->stable Fever-->stable Assessment and Plan: * Increased frequency, CVA tenderness b/l * UA positive for nitrates, wbc, per ED attending rectal temp elevated * Lactate: 0.9 * Urine culture; gram negative glenn-->final report comes in tomorrow * Ct abdomen/pelvis w/o contrast: 1. No hydronephrosis, nephrolithiasis or perinephric fat stranding/fluid collection. 2. Stable 2.2 cm parapelvic cyst in the lower pole of the left kidney. 3. Colonic diverticulosis without CT evidence for acute diverticulitis. * Rocephin 1g IVP Q12H * Florastor 250mg PO Q BID * Tylenol 650mg PO Q6H PRN fever * NS 75ml/hr * ESR: 35 * CRP: normal Status: Acute Priority: High (2) Vulvovaginitis-->improving Assessment and Plan: * Lotrimin 1% topical BID applied in groin and sheri-vaginally Status: Acute Priority: Medium (3) Prophylactic measure Assessment and Plan: * GI prophylaxis not indicated * Heparin 5000u SC Q8H * SCDs * Heart Healthy Diet Status: Acute Priority: Low
[2018-05-03] MEDS ORDERED: Simethicone 40 mg/0.6 ml Liquid (30 ml) PO SCH (18:00)
[2018-05-03 18:45] VITALS: BP 116/70; PULSE 75; TEMP 98.1; O2SAT 96
--- NOTE | 2018-05-04 19:49 | CARD ---
APPROVED REPORT EKG Measurement Heart [id number] <Conclusion> Normal sinus rhythm Possible Left atrial enlargement Borderline ECG
== END 2018-05-03 19:35 | disposition home or self-care (01) ==
LOC: C.ER 16:26 → C.9E 18:05 → C.3T 18:22 → C.9E 18:29 → C.5S 19:16 → C.3T 05-03 16:15
PROVIDERS: ADMIT Hospitalist; ATTEND Hospitalist
DX: N39.0 Urinary tract infection, site not specified (principal); N76.0 Acute vaginitis; G89.29 Other chronic pain; E78.00 Pure hypercholesterolemia, unspecified; K57.30 Diverticulosis of large intestine without perforation or abscess without bleeding; R32 Unspecified urinary incontinence; Z87.440 Personal history of urinary (tract) infections; Z90.49 Acquired absence of other specified parts of digestive tract
CPT/HCPCS: 36415; 71045; 74176; 80053; 81001; 83605; 84484; 85025; 85651; 86140; 87086; 87181; 87804; 93005; 96361; 96365; 96366; 96372; 96375; 96376; 99285; G0378; J0696; J1650; J1885; J7030